=== PATIENT | female | born 1960 | race Caucasian/White ===

== ENCOUNTER 2017-03-20 09:52 | Emergency (ER) | payer MEDICAID ==
[~2017-03-20] VITALS: Ht 165.1 cm; Wt 92.8 kg
[~2017-03-20 09:52] MED LIST: CLON1TAB23 PO; GABA600T2 PO; MIRT15TA4 PO; QUET100T PO; VENL150T PO
[2017-03-20 09:53] VITALS: BP 130/83
[2017-03-20] MEDS ORDERED: LIDOCAINE 1%, 20ML SQ ONE (10:30)
[2017-03-20] MEDS ORDERED: LIDOCAINE 1%, 20ML ONE (10:40)
[2017-03-20] MEDS ORDERED: BACITRACIN ZINC OINT 500U/GM, 0.9 GM ONE (11:28)
== END 2017-03-20 11:37 | disposition home or self-care (01) ==
LOC: ED 11:10
DX: S61.411A Laceration without foreign body of right hand, initial encounter (principal); W26.8XXA Contact with other sharp object(s), not elsewhere classified, initial encounter; Y93.89 Activity, other specified; Y92.89 Other specified places as the place of occurrence of the external cause; Y99.8 Other external cause status
CPT/HCPCS: 12001

== ENCOUNTER 2018-08-02 16:12 | Emergency (ER) | payer MEDICAID ==
[~2018-08-02] VITALS: Ht 167.6 cm; Wt 74.0 kg
[2018-08-02 16:29] VITALS: BP 100/66
[2018-08-02] MEDS ORDERED: HYDROcodone/APAP 5/325 TABLET ONE ×2 (17:47→17:54)
[2018-08-02] MEDS ORDERED: HYDROcodone/APAP 5/325 TABLET PO ONE (18:00)
== END 2018-08-02 18:01 | disposition home or self-care (01) ==
LOC: ED 17:19
DX: S62.355A Nondisplaced fracture of shaft of fourth metacarpal bone, left hand, initial encounter for closed fracture (principal); S93.402A Sprain of unspecified ligament of left ankle, initial encounter; W01.10XA Fall on same level from slipping, tripping and stumbling with subsequent striking against unspecified object, initial encounter; Y93.89 Activity, other specified; Y92.410 Unspecified street and highway as the place of occurrence of the external cause; Y99.8 Other external cause status
CPT/HCPCS: 29125; 99284

== ENCOUNTER 2018-08-04 11:45 | Emergency (ER) | payer MEDICAID ==
[~2018-08-04] VITALS: Ht 167.6 cm; Wt 81.3 kg
[2018-08-04 11:49] VITALS: BP 115/72
[2018-08-04] MEDS ORDERED: HYDROcodone/APAP 5/325 TABLET ONE (12:06)
[2018-08-04] MEDS ORDERED: ONDANSETRON ODT 4 MG ONE (12:07)
[2018-08-04] MEDS ORDERED: HYDROcodone/APAP 5/325 TABLET PO ONE (12:30)
[2018-08-04] MEDS ORDERED: ONDANSETRON ODT 4 MG PO ONE (12:30)
== END 2018-08-04 13:24 | disposition home or self-care (01) ==
LOC: ED 13:00
DX: S62.355A Nondisplaced fracture of shaft of fourth metacarpal bone, left hand, initial encounter for closed fracture (principal); W19.XXXA Unspecified fall, initial encounter; Y93.89 Activity, other specified; Y92.488 Other paved roadways as the place of occurrence of the external cause; Y99.9 Unspecified external cause status
CPT/HCPCS: 73110; 73130; 99284; Q0162